=== PATIENT | male | born 1950 | race Caucasian/White ===

== ENCOUNTER 2017-07-22 18:07 | Emergency (ER) | payer MEDICARE, OTHER ==
[~2017-07-22] VITALS: Ht 182.9 cm; Wt 86.2 kg
[~2017-07-22 18:07] MED LIST: ACETAMINOPHEN PO; ALPR0.254 OR; AMIT25TA9 OR; CITA-36 OR; HYDR25TA4 OR; HYDROCODONE PO; LABE100T; LISI40TA OR; PANTPAK PO; SUCR1TAB OR; TOPI200T37 OR
[2017-07-22 19:22] LABS: Basophils # (auto) 0.1 uL; Basophils % (auto) 0.6 % (0.0-2.0); Eosinophils # (auto) 0.2 uL; Eosinophils % (auto) 1.7 % (0.0-7.0); Hematocrit 41.5 % (41.0-53.0); Hemoglobin 13.6 g/dL (13.5-17.5); Lymphocytes # (auto) 1.7 uL; Lymphocytes % (auto) 14.7 % (10.0-50.0); Mean Corpuscular Hemoglobin 28.7 pg (28.0-32.0); Mean Corpuscular Hgb Conc. 32.9 g/dL (32.0-36.0); Mean Corpuscular Volume 87.4 fL (80.0-100.0); Mean Platelet Volume 7.4 fL (7.4-10.4); Monocytes # (auto) 0.9 uL; Monocytes % (auto) 7.4 % (0.0-12.0); Neutrophils # (auto) 8.9 uL; Neutrophils % (auto) 75.6 % (37.0-80.0); Platelet Count (auto) 270 10^3/uL (140-450); Red Cell Distribution Width 15.5 % (11.6-16.0); White Blood Cell 11.7 10^3/uL (4.4-10.8)
[2017-07-22 19:56] LABS: Albumin 3.4 g/dL (3.4-5.0); Alkaline Phosphatase 66 U/L (45-117); Anion Gap 6 (5-15); Aspartate Aminotransferase 10 U/L (15-37); BUN/Creatinine Ratio 24.4; Bilirubin, Total 0.3 mg/dL (0.2-1.0); Blood Urea Nitrogen 22 mg/dL (7-18); Calcium 8.9 mg/dL (8.5-10.1); Carbon Dioxide 25 mmol/L (21-32); Chloride 106 mmol/L (98-107); GFR African American 109 mL/min; GFR Non-African American 90 mL/min; Glucose 123 mg/dL (74-106); Magnesium 2.6 mg/dL (1.6-2.6); Sodium 137 mmol/L (136-145); Total Protein 7.1 g/dL (6.4-8.2)
[2017-07-22 20:47] LABS: Anion Gap 9 (5-15); BUN/Creatinine Ratio 23.2; Blood Urea Nitrogen 23 mg/dL (7-18); Calcium 8.6 mg/dL (8.5-10.1); Carbon Dioxide 23 mmol/L (21-32); Chloride 110 mmol/L (98-107); GFR African American 98 mL/min; GFR Non-African American 81 mL/min; Glucose 118 mg/dL (74-106); Potassium 4.1 mmol/L (3.5-5.1); Sodium 142 mmol/L (136-145)
[2017-07-22] MEDS ORDERED: MORPHINE SULF INJ 2 MG/ML SYRINGE 1ML IV ONE (21:15)
[2017-07-22] MEDS ORDERED: ONDANSETRON HCL 4 MG/2 ML VIAL IV ONE (21:15)
[2017-07-22] MEDS ORDERED: SODIUM CHLORIDE 0.9% 1,000 ML IV ONE (21:15)
[2017-07-22 23:25] VITALS: BP 122/80
== END 2017-07-22 23:35 | disposition home or self-care (01) ==
LOC: EDBD 18:07 → ER 18:12
DX: G40.802 Other epilepsy, not intractable, without status epilepticus (principal); I25.2 Old myocardial infarction; I10 Essential (primary) hypertension; K86.1 Other chronic pancreatitis; F12.10 Cannabis abuse, uncomplicated
CPT/HCPCS: 36415; 70450; 73030; 73502; 80048; 80053; 80320; 83735; 84484; 85025; 85379; 93005; 96361; 96374; 96375; 99285; J2270; J2405; J7030

== ENCOUNTER 2022-08-21 17:19 | Inpatient (IN) | payer OTHER ==
[~2022-08-21] VITALS: Ht 177.8 cm; Wt 93.3 kg
[~2022-08-21 17:19] MED LIST changes: +AMIT25TA12 OR; -AMIT25TA9 OR; -CITA-36 OR; +CITA40TA12 OR; -LABE100T; +LABE100T4; -LISI40TA OR; +LISI40TA11 OR
[2022-08-21] MEDS ORDERED: DexAMETHasone SOD PHOS 10MG/1ML VIAL INJ IV ONE (18:00)
[2022-08-21] MEDS ORDERED: ASPirin 81 mg TAB PO ONE (18:00)
[2022-08-21] MEDS ORDERED: MAGNESIUM SULFATE 1GM/100ML 100 ML IV ONE (18:00)
[2022-08-21 18:26] LABS: Basophils # (auto) 0.1 10 ^3/uL (0-0.2); Basophils % (auto) 0.9 % (0.0-2.0); Eosinophils # (auto) 0 10 ^3/uL (0-0.8)
[2022-08-21 18:28] LABS: Hematocrit 36.6 % (41.0-53.0); Hemoglobin 10.6 g/dL (13.5-17.5); Lymphocytes # (auto) 0.8 10 ^3/uL (0.4-5.4); Lymphocytes % (auto) 5.8 % (10.0-50.0); Mean Corpuscular Hemoglobin 20.5 pg (28.0-32.0); Mean Corpuscular Hgb Conc. 29.1 g/dL (32.0-36.0); Mean Corpuscular Volume 70.4 fL (80.0-100.0); Monocytes # (auto) 0.9 10 ^3/uL (0-1.3); Monocytes % (auto) 6.4 % (0.0-12.0); Neutrophils # (auto) 12.3 10 ^3/uL (1.6-8.6); Neutrophils % (auto) 86.9 % (37.0-80.0); Nucleated Red Blood Cells % 0.2 %; Red Blood Cells 5.19 10^6/uL (4.5-5.90); Red Cell Distribution Width 20.3 % (11.8-14.3); White Blood Cell 14.1 10^3/uL (4.4-10.8)
[2022-08-21 18:51] LABS: Albumin 2.5 g/dL (3.4-5.0); BUN/Creatinine Ratio 24.2; Calcium 7.3 mg/dL (8.5-10.1); Magnesium 1.7 mg/dL (1.6-2.6); Potassium 4.2 mmol/L (3.5-5.1)
[2022-08-21 18:53] LABS: Bilirubin, Total 1.4 mg/dL (0.2-1.0); Total Protein 6.5 g/dL (6.4-8.2)
[2022-08-21 18:59] VITALS: BP 93/68
[2022-08-21 20:54] VITALS: BP 149/104
[2022-08-21] MEDS ORDERED: FUROSEMIDE 20 MG/2 ML VIAL IV ONE (22:00)
[2022-08-21] MEDS ORDERED: NITROGLYCERIN 0.4 MG SL TAB SL PRN (22:00)
[2022-08-21] MEDS ORDERED: MORPHINE SULFATE INJ 2 MG/ml SYRG IV PRN (22:00)
[2022-08-21] MEDS ORDERED: CALCIUM GLUC 1,000mg/50ml-NS 50 ML IV ONE (22:00)
[2022-08-21] MEDS ORDERED: SOD CHL 0.45% 1,000 ML IV ONE (22:00)
[2022-08-21] MEDS ORDERED: ALBUMIN 25% 100 ML IV ONE (22:00)
[2022-08-21 22:04] VITALS: BP 110/83
[2022-08-21 23:14] LABS: INR 1.46 (0.9-1.15)
[2022-08-21 23:46] VITALS: BP 117/82
[2022-08-21] MEDS: ALBUTEROL SULF 2.5 MG/0.5ML(0.5%) NEB SOLN NEB SCH (23:46)
[2022-08-21] MEDS: IPRATROPIUM BROM 0.5 MG/2.5ML INH SOL NEB SCH (23:46)
[2022-08-22] VITALS (10 sets, daily range): BP systolic 94–132; BP diastolic 58–84
[2022-08-22] MEDS: HYDROcodone-ACET 5/325MG TAB PO PRN ×4 (03:40→22:23)
[2022-08-22 05:49] LABS: Basophils # (auto) 0 10 ^3/uL (0-0.2); Basophils % (auto) 0.4 % (0.0-2.0); Eosinophils # (auto) 0 10 ^3/uL (0-0.8); Hematocrit 32.8 % (41.0-53.0); Hemoglobin 9.8 g/dL (13.5-17.5); Lymphocytes # (auto) 0.8 10 ^3/uL (0.4-5.4); Lymphocytes % (auto) 15.8 % (10.0-50.0); Mean Corpuscular Hemoglobin 20.9 pg (28.0-32.0); Mean Corpuscular Hgb Conc. 29.7 g/dL (32.0-36.0); Mean Corpuscular Volume 70.3 fL (80.0-100.0); Monocytes # (auto) 0.1 10 ^3/uL (0-1.3); Monocytes % (auto) 2.7 % (0.0-12.0); Neutrophils # (auto) 3.9 10 ^3/uL (1.6-8.6); Neutrophils % (auto) 81.1 % (37.0-80.0); Nucleated Red Blood Cells % 0.5 %; Red Blood Cells 4.67 10^6/uL (4.5-5.90); White Blood Cell 4.8 10^3/uL (4.4-10.8)
[2022-08-22 06:09] LABS: Albumin 2.7 g/dL (3.4-5.0); Calcium 7.9 mg/dL (8.5-10.1)
[2022-08-22 06:15] LABS: BUN/Creatinine Ratio 20.8; Bilirubin, Total 1.4 mg/dL (0.2-1.0); Total Protein 6.3 g/dL (6.4-8.2)
[2022-08-22] MEDS: ALBUTEROL SULF 2.5 MG/0.5ML(0.5%) NEB SOLN NEB SCH ×4 (06:30→23:36)
[2022-08-22] MEDS: IPRATROPIUM BROM 0.5 MG/2.5ML INH SOL NEB SCH ×4 (06:30→23:36)
[2022-08-22] MEDS ORDERED: DexAMETHasone SOD PHOS 4 MG/1ML SDV INJ IV SCH (10:00)
[2022-08-22] MEDS: FUROSEMIDE 20 MG/2 ML VIAL IV SCH (10:26)
[2022-08-22] MEDS: POTASSIUM CHL 20 Meq TABLET PO SCH (10:27)
[2022-08-22] MEDS: levoFLOXacin 500MG 100 ML IV SCH (10:27)
[2022-08-22] MEDS: DexAMETHasone SOD PHOS 4 MG/1ML SDV INJ IV SCH ×2 (10:27→21:17)
[2022-08-22] MEDS: ENOXAPARIN SOD 40 MG/0.4 ML SYRINGE SC SCH (10:27)
[2022-08-22] MEDS ORDERED: LIDOCAINE 2% JELLY 11ml (GLYDO) ONE (11:12)
[2022-08-22] MEDS ORDERED: LIDOCAINE 2% JELLY 11ml (GLYDO) UR ONE (11:15)
[2022-08-22] MEDS ORDERED: ALBU0.084 NEB (20:29)
[2022-08-22] MEDS ORDERED: FAMO20TA10 PO (20:29)
[2022-08-22] MEDS ORDERED: ASPI1TAB20 PO (20:29)
[2022-08-22] MEDS ORDERED: ALBUAER3 IN (20:29)
[2022-08-22] MEDS ORDERED: HYDR-4611 (20:29)
[2022-08-22] MEDS ORDERED: ATOR10TA52 PO (20:29)
[2022-08-22] MEDS ORDERED: NINT1CAP2 PO (20:29)
[2022-08-22] MEDS ORDERED: BUDE2SUS3 (20:29)
[2022-08-23 01:55] LABS: Urine Bacteria NONE SEEN /hpf (None Seen); Urine Blood 2+ /uL (Negative); Urine Mucus FEW (None Seen); Urine Specific Gravity 1.028 (1.001-1.035); Urine WBC 6 /hpf (0 - 3)
[2022-08-23 02:07] LABS: Alcohol, Urine < 3.0 mg/dL (0-10); Amphetamine Screen, Urine NEGATIVE (NEGATIVE); Barbiturate Scree,Urine NEGATIVE (NEGATIVE); Benzodiazephine Screen, Urine NEGATIVE (NEGATIVE); Cannabinoid Screen, Urine NEGATIVE (NEGATIVE); Cocaine Screen, Urine NEGATIVE (NEGATIVE); Opiate Scree,Urine POSITIVE (NEGATIVE); Phencyclidine Screen, Urine NEGATIVE (NEGATIVE)
[2022-08-23 05:00] VITALS: BP 146/102
[2022-08-23] MEDS: HYDROcodone-ACET 5/325MG TAB PO PRN ×2 (05:14→11:30)
[2022-08-23 05:37] LABS: Basophils # (auto) 0 10 ^3/uL (0-0.2); Eosinophils # (auto) 0 10 ^3/uL (0-0.8); Hemoglobin 9.8 g/dL (13.5-17.5); Mean Corpuscular Hgb Conc. 30.3 g/dL (32.0-36.0); White Blood Cell 6.3 10^3/uL (4.4-10.8)
[2022-08-23 05:39] LABS: Basophils % (auto) 0.2 % (0.0-2.0); Hematocrit 32.5 % (41.0-53.0); Lymphocytes # (auto) 0.8 10 ^3/uL (0.4-5.4); Lymphocytes % (auto) 12.9 % (10.0-50.0); Mean Corpuscular Hemoglobin 21.2 pg (28.0-32.0); Mean Corpuscular Volume 70.1 fL (80.0-100.0); Monocytes # (auto) 0.2 10 ^3/uL (0-1.3); Monocytes % (auto) 3.8 % (0.0-12.0); Neutrophils # (auto) 5.2 10 ^3/uL (1.6-8.6); Neutrophils % (auto) 83.1 % (37.0-80.0); Nucleated Red Blood Cells % 0.7 %; Red Blood Cells 4.64 10^6/uL (4.5-5.90)
[2022-08-23 05:53] LABS: Albumin 2.7 g/dL (3.4-5.0); Calcium 8.4 mg/dL (8.5-10.1); Potassium 4.6 mmol/L (3.5-5.1)
[2022-08-23 05:58] LABS: BUN/Creatinine Ratio 27.9; Bilirubin, Total 1.2 mg/dL (0.2-1.0); Total Protein 6.5 g/dL (6.4-8.2)
[2022-08-23 06:11] LABS: Red Cell Distribution Width 20.8 % (11.8-14.3)
[2022-08-23 08:30] VITALS: BP 138/97
[2022-08-23] MEDS: POTASSIUM CHL 20 Meq TABLET PO SCH (10:06)
[2022-08-23] MEDS: levoFLOXacin 500MG 100 ML IV SCH (10:06)
[2022-08-23] MEDS: FUROSEMIDE 20 MG/2 ML VIAL IV SCH (10:08)
[2022-08-23] MEDS: DexAMETHasone SOD PHOS 4 MG/1ML SDV INJ IV SCH (10:09)
[2022-08-23] MEDS: ENOXAPARIN SOD 40 MG/0.4 ML SYRINGE SC SCH (10:09)
[2022-08-23] MEDS: ALBUTEROL SULF 2.5 MG/0.5ML(0.5%) NEB SOLN NEB SCH (11:43)
[2022-08-23] MEDS: IPRATROPIUM BROM 0.5 MG/2.5ML INH SOL NEB SCH (11:43)
[2022-08-23 12:25] VITALS: BP 140/99
[2022-08-23 16:30] VITALS: BP_SYST 132; BP_SYST 140; BP_DIAS 98; BP_DIAS 99
== END 2022-08-23 17:52 | disposition hospice, home (50) | DRG 189 ==
LOC: EDBD 17:19 → ER 17:34 → TELE 22:01 → TELE-WESTW 08-22 17:00
PROVIDERS: ADMIT Internal Medicine; ATTEND Internal Medicine
PROC: 5A09357 Assistance with Respiratory Ventilation, Less than 24 Consecutive Hours, Continuous Positive Airway Pressure (ICD-10-PCS; principal; 2022-08-21)
PROC: 5A09357 Assistance with Respiratory Ventilation, Less than 24 Consecutive Hours, Continuous Positive Airway Pressure (ICD-10-PCS; 2022-08-22)
DX: J96.01 Acute respiratory failure with hypoxia (principal); J44.1 Chronic obstructive pulmonary disease with (acute) exacerbation; E44.1 Mild protein-calorie malnutrition; J84.10 Pulmonary fibrosis, unspecified; I25.10 Atherosclerotic heart disease of native coronary artery without angina pectoris; E03.9 Hypothyroidism, unspecified; E78.5 Hyperlipidemia, unspecified; I10 Essential (primary) hypertension; Z79.899 Other long term (current) drug therapy; Z87.891 Personal history of nicotine dependence; L89.152 Pressure ulcer of sacral region, stage 2; Z68.29 Body mass index [BMI] 29.0-29.9, adult
CPT/HCPCS: 36415; 36600; 71045; 80053; 80307; 80320; 81001; 82805; 83690; 83735; 83880; 84484; 85025; 85610; 87426; 93005; 93306; 94640; 94660; 96361; 96365; 96367; 96372; 96375; 96376; 99291; G0378; J1100; J1956; P9047